=== PATIENT | female | born 1980 | race African-American/Black ===

== ENCOUNTER 2016-10-03 17:20 | Emergency (ER) | payer OTHER ==
[~2016-10-03] VITALS: Ht 172.7 cm; Wt 108.9 kg
[~2016-10-03 17:20] MED LIST: BACTRIM DS TAB1 EACH PO; DEXAMETHASONE4 M1 PO; DOCUSATE SODIU100 M3 PO; GABAPENTIN300 M2 PO; OXYCODONE-ACET1 EAC1 PO; PROTONIX40 M3 PO
[2016-10-03 17:30] VITALS: BP 133/84
== END 2016-10-03 18:00 | disposition admitted as inpatient to this hospital (09) ==
LOC: ERH 17:20
DX: R00.1 Bradycardia, unspecified (principal); T40.2X5A Adverse effect of other opioids, initial encounter